=== PATIENT | female | born 1940 | race Caucasian/White ===

== ENCOUNTER 2020-08-13 14:02 | Observation (INO) ==
[2020-08-13 15:47] LABS: Basophils % 0.3 %; Eosinophils # 0.1 K/mcL (0.0-0.6); Eosinophils % 1.6 %; Hematocrit 23.5 % (35.3-44.9); Hemoglobin 6.8 g/dL (11.5-15.4); Immature Granulocytes % 0.6 % (0-4); Lymphocytes # 0.5 K/mcL (0.6-4.6); Mean Corpuscular HGB Conc 28.9 g/dL (31.6-35.5); Mean Corpuscular Hemoglobin 27.6 pg (28.0-33.3); Mean Corpuscular Volume 95.5 fL (83.0-100.0); Mean Platelet Volume 9.8 fL (9.4-12.4); Monocytes # 0.4 K/mcL (0.0-1.3); Monocytes % 11.5 %; Neutrophils # 2.2 K/mcL (1.6-8.9); Red Blood Count 2.46 M/mcL (3.82-4.97); Red Cell Distribution Width 16.5 % (11.5-14.5); White Blood Count 3.1 K/mcL (4.3-11.1)
[2020-08-13 15:48] LABS: Platelet Count 91 K/mcL (140-400)
[2020-08-13 15:56] LABS: Calcium 8.8 mg/dL (8.6-10.3); Potassium 3.9 mEq/L (3.5-5.1)
[2020-08-13 16:20] LABS: Ovalocytes 1+ (Not Present); Platelet Estimate Slight Decrease (Normal)
[2020-08-13 16:21] LABS: Anisocytosis 1+ (Not Present); Hypochromasia Present (Not Present)
[2020-08-13] MEDS ORDERED: Ondansetron 4 MG/2 ML VIAL IVP PRN (16:45)
[2020-08-13] MEDS ORDERED: Naloxone 0.4 MG/ML INJ IVP PRN (16:45)
[2020-08-13] MEDS ORDERED: D5% in Water 1,000 ML IVC PRN (16:53)
[2020-08-13] MEDS ORDERED: Dextrose Gel 15 GM/37.5 ML TUBE PO PRN ×2 (16:53)
[2020-08-13] MEDS ORDERED: *HR* Dextrose 50 % in Water (Vial) 50 ML VIAL IVP PRN (16:53)
[2020-08-13] MEDS ORDERED: 0.9 % Sodium Chloride 250 ML ONE ×2 (17:00→20:22)
[2020-08-13] MEDS: Pantoprazole 40 MG VIAL IVP SCH (18:32)
[2020-08-13] MEDS: carvediloL 6.25 MG TABLET PO SCH (18:34)
[2020-08-13] MEDS: Insulin LISPRO 300 UNITS/3 ML VIAL SQ SCH (18:37)
[2020-08-13 18:56] LABS: Estimated Average Glucose 71 mg/dl
[2020-08-13] MEDS: Budesonide/Formoterol 80/4.5 1 PUFF INH IH SCH (19:38)
[2020-08-13] MEDS ORDERED: Insulin DETEMIR 100 UNIT/ML X5UNITS SQ SCH (21:00)
[2020-08-14] MEDS: Insulin LISPRO 300 UNITS/3 ML VIAL SQ SCH ×3 (00:17→14:35)
[2020-08-14 03:43] LABS: Basophils % 0.3 %; Eosinophils % 1.9 %; Immature Granulocytes % 0.3 % (0-4)
[2020-08-14 03:45] LABS: Eosinophils # 0.1 K/mcL (0.0-0.6); Hematocrit 26.6 % (35.3-44.9); Hemoglobin 7.9 g/dL (11.5-15.4); Immature Platelets 3.3 % (1.1-6.1); Lymphocytes # 0.6 K/mcL (0.6-4.6); Lymphocytes % 14.6 %; Mean Corpuscular HGB Conc 29.7 g/dL (31.6-35.5); Mean Corpuscular Hemoglobin 27.6 pg (28.0-33.3); Mean Platelet Volume 9.7 fL (9.4-12.4); Monocytes # 0.5 K/mcL (0.0-1.3); Monocytes % 13.6 %; Neutrophils # 2.6 K/mcL (1.6-8.9); Nucleated Red Blood Cells 0.5 /100 WBC (0); Red Blood Count 2.86 M/mcL (3.82-4.97); Red Cell Distribution Width 16.7 % (11.5-14.5); Segmented Neutrophils % 69.3 %; White Blood Count 3.8 K/mcL (4.3-11.1)
[2020-08-14 03:46] LABS: Platelet Count 87 K/mcL (140-400)
[2020-08-14 03:58] LABS: Calcium 8.2 mg/dL (8.6-10.3); Magnesium 1.6 mg/dL (1.6-2.6); Phosphorous 3.6 mg/dL (2.7-4.5); Potassium 3.8 mEq/L (3.5-5.1)
[2020-08-14] MEDS: Pantoprazole 40 MG VIAL IVP SCH (06:22)
[2020-08-14] MEDS: Budesonide/Formoterol 80/4.5 1 PUFF INH IH SCH (07:49)
[2020-08-14] MEDS ORDERED: NON-FORMULARY MEDICATION 1 EACH EACH (Esomeprazole Magnesium [Nexium] 40 MG) PO SCH (09:00)
[2020-08-14] MEDS ORDERED: *HR* Amiodarone 200 MG TABLET PO SCH (09:00)
[2020-08-14] MEDS: carvediloL 6.25 MG TABLET PO SCH (09:51)
[2020-08-14] MEDS ORDERED: Tiotropium 18 MCG inhalation IH SCH (10:00)
[2020-08-14 11:56] VITALS: BP 134/52
== END 2020-08-14 14:45 | disposition home or self-care (01) ==
LOC: EMEROOARM 14:02 → 3BNU 14:02 → SUATTDRO 17:09 → 3BNU 17:40
PROVIDERS: ADMIT Pharmacist; ATTEND Internal Medicine

== ENCOUNTER 2020-09-29 16:49 | Observation (INO) ==
[2020-09-29] MEDS ORDERED: Pantoprazole 40 MG VIAL IVP ONE (17:07)
[2020-09-29 17:43] LABS: INR 1.8; Prothrombin Time 20.9 Seconds (9.4-12.1)
[2020-09-29 17:49] LABS: Basophils % 0.3 %
[2020-09-29 17:50] LABS: Eosinophils # 0.1 K/mcL (0.0-0.6); Eosinophils % 1.5 %; Hematocrit 21.7 % (35.3-44.9); Hemoglobin 6.3 g/dL (11.5-15.4); Lymphocytes # 0.6 K/mcL (0.6-4.6); Lymphocytes % 17.3 %; Mean Corpuscular Hemoglobin 26.9 pg (28.0-33.3); Mean Corpuscular Volume 92.7 fL (83.0-100.0); Monocytes # 0.4 K/mcL (0.0-1.3); Monocytes % 11.4 %; Neutrophils # 2.2 K/mcL (1.6-8.9); Platelet Count 106 K/mcL (140-400); Red Blood Count 2.34 M/mcL (3.82-4.97); Red Cell Distribution Width 14.4 % (11.5-14.5); Segmented Neutrophils % 69.5 %; White Blood Count 3.2 K/mcL (4.3-11.1)
[2020-09-29 18:05] LABS: Alanine Aminotransferase 13 Units/L (7-52); Albumin 3.1 g/dL (3.5-5.7); Albumin/Globulin Ratio 0.9 (1.1-2.2); Alkaline Phosphatase 70 Units/L (34-104); Aspartate Amino Transferase 16 Units/L (13-39); BUN/Creatinine Ratio 25 (6-26); Bilirubin,Total 0.6 mg/dL (0.3-1.0); Blood Urea Nitrogen 41 mg/dL (8-23); Calcium 8.1 mg/dL (8.6-10.3); Carbon Dioxide 32 mEq/L (23-29); Chloride 100 mEq/L (98-107); Globulin 3.5 g/dL (2.4-3.5); Glucose 177 mg/dL (70-105); Osmolality,Calculated 300 (280-300); Potassium 4.3 mEq/L (3.5-5.1); Sodium 138 mEq/L (136-145); Total Protein 6.6 g/dL (6.4-8.9); Troponin I < 0.03 ng/mL (< 0.04); eGFR For African Americans 37 (> 60); eGFR For Non-African Americans 31 (> 60)
[2020-09-29 18:11] LABS: Anisocytosis 1+ (Not Present); Hypochromasia Present (Not Present); Platelet Estimate Decreased (Normal)
[2020-09-29] MEDS ORDERED: 0.9 % Sodium Chloride 250 ML ONE (18:58)
[2020-09-29 19:55] LABS: Adenovirus Not Detected (Not Detect); Bordetella Pertussis Not Detected (Not Detect); Chlamydophila pneumoniae Not Detected (Not Detect); Coronavirus 229E Not Detected (Not Detect); Coronavirus HKU1 Not Detected (Not Detect); Coronavirus NL63 Not Detected (Not Detect); Coronavirus OC43 Not Detected (Not Detect); Human Metapneumovirus Not Detected (Not Detect); Human Rhinovirus/Enterovirus Not Detected (Not Detect); Influenza A Subtype 2009 H1 Not Detected (Not Detect); Influenza B Not Detected (Not Detect); Mycoplasma pneumoniae Not Detected (Not Detect); Parainfluenza Virus 1 Not Detected (Not Detect); Parainfluenza Virus 2 Not Detected (Not Detect); Parainfluenza Virus 3 Not Detected (Not Detect); Parainfluenza Virus 4 Not Detected (Not Detect); Respiratory Syncytial Virus Not Detected (Not Detect); SARS-CoV-2 Not Detected (Not Detect)
[2020-09-29] MEDS ORDERED: Naloxone 0.4 MG/ML INJ IVP PRN (20:07)
[2020-09-29] MEDS ORDERED: Acetaminophen 325 MG TABLET PO PRN (20:07)
[2020-09-29] MEDS ORDERED: Ondansetron ODT 4 MG TAB.RAPDIS SL PRN (20:07)
[2020-09-29] MEDS ORDERED: D5% in Water 1,000 ML IVC PRN (22:12)
[2020-09-29] MEDS ORDERED: Dextrose Gel 15 GM/37.5 ML TUBE PO PRN ×2 (22:12)
[2020-09-29] MEDS ORDERED: *HR* Dextrose 50 % in Water (Vial) 50 ML VIAL IVP PRN (22:12)
[2020-09-29 23:11] LABS: Hemoglobin 7.2 g/dL (11.5-15.4); Red Cell Distribution Width 14.1 % (11.5-14.5)
[2020-09-29 23:13] LABS: Basophils % 0.3 %; Eosinophils # 0.1 K/mcL (0.0-0.6); Eosinophils % 1.7 %; Hematocrit 24.5 % (35.3-44.9); Lymphocytes # 0.7 K/mcL (0.6-4.6); Lymphocytes % 20.6 %; Mean Corpuscular HGB Conc 29.4 g/dL (31.6-35.5); Mean Corpuscular Volume 91.8 fL (83.0-100.0); Mean Platelet Volume 10.8 fL (9.4-12.4); Monocytes # 0.5 K/mcL (0.0-1.3); Monocytes % 12.5 %; Neutrophils # 2.3 K/mcL (1.6-8.9); Platelet Count 107 K/mcL (140-400); Red Blood Count 2.67 M/mcL (3.82-4.97); Segmented Neutrophils % 64.9 %; White Blood Count 3.6 K/mcL (4.3-11.1)
[2020-09-29 23:30] LABS: Anisocytosis 1+ (Not Present); Hypochromasia Present (Not Present); Platelet Estimate Decreased (Normal)
[2020-09-29] MEDS: Insulin LISPRO 300 UNITS/3 ML VIAL SQ SCH (23:46)
[2020-09-30] MEDS ORDERED: 0.9 % Sodium Chloride 250 ML ONE (00:21)
[2020-09-30 04:40] LABS: Basophils % 0.2 %; Eosinophils # 0.1 K/mcL (0.0-0.6); Hematocrit 26.7 % (35.3-44.9); Immature Granulocytes % 0.2 % (0-4); Lymphocytes # 0.8 K/mcL (0.6-4.6); Lymphocytes % 18.3 %; Mean Corpuscular Hemoglobin 27.3 pg (28.0-33.3); Mean Corpuscular Volume 91.1 fL (83.0-100.0); Mean Platelet Volume 10.4 fL (9.4-12.4); Monocytes # 0.5 K/mcL (0.0-1.3); Monocytes % 11.2 %; Platelet Count 106 K/mcL (140-400); Red Blood Count 2.93 M/mcL (3.82-4.97); Red Cell Distribution Width 14.2 % (11.5-14.5); Segmented Neutrophils % 68.1 %; White Blood Count 4.5 K/mcL (4.3-11.1)
[2020-09-30 04:50] LABS: Calcium 8.2 mg/dL (8.6-10.3); Magnesium 1.8 mg/dL (1.6-2.6); Phosphorous 3.7 mg/dL (2.7-4.5)
[2020-09-30 06:00] LABS: Bilirubin,Urine Negative (Negative); Blood,Urine Negative (Negative); Clarity,Urine Clear (Clear); Color,Urine Light-Yellow (Yellow); Glucose,Urine (UA) Normal (Normal); Ketones,Urine Negative (Negative); Leukocyte Esterase,Urine Moderate (Negative); Nitrite,Urine Negative (Negative); PH,Urine 6.5 pH Units (5.0-8.0); Protein,Urine Negative (Neg-Trace); Specific Gravity,Urine 1.018 (1.010-1.025); Squamous Epithelial Cell,Urine Few per hpf (None-Few); WBC,Urine 0-3 per hpf (0-3)
[2020-09-30 06:45] LABS: Basophils % 0.2 %; Red Cell Distribution Width 14.4 % (11.5-14.5)
[2020-09-30 06:47] LABS: Eosinophils # 0.1 K/mcL (0.0-0.6); Hematocrit 27.3 % (35.3-44.9); Hemoglobin 8.1 g/dL (11.5-15.4); Lymphocytes # 0.6 K/mcL (0.6-4.6); Lymphocytes % 12.2 %; Mean Corpuscular HGB Conc 29.7 g/dL (31.6-35.5); Mean Corpuscular Hemoglobin 26.9 pg (28.0-33.3); Mean Corpuscular Volume 90.7 fL (83.0-100.0); Mean Platelet Volume 10.3 fL (9.4-12.4); Monocytes # 0.6 K/mcL (0.0-1.3); Monocytes % 12.4 %; Neutrophils # 3.3 K/mcL (1.6-8.9); Red Blood Count 3.01 M/mcL (3.82-4.97); Segmented Neutrophils % 73.2 %; White Blood Count 4.5 K/mcL (4.3-11.1)
[2020-09-30 06:58] LABS: Platelet Count 98 K/mcL (140-400)
[2020-09-30] MEDS ORDERED: Ipratropium/Albuterol Neb 3 ML IH SCH (07:00)
[2020-09-30] MEDS: Insulin LISPRO 300 UNITS/3 ML VIAL SQ SCH (08:49)
[2020-09-30 11:27] VITALS: BP 162/64
== END 2020-09-30 12:50 | disposition home or self-care (01) ==
LOC: EMEROOARM 16:49 → 3NENU 16:49 → SUATTDRO 20:36 → 3NENU 21:23
PROVIDERS: ADMIT Family Medicine; ATTEND Internal Medicine

== ENCOUNTER 2020-10-13 18:56 | Observation (INO) ==
[2020-10-13 20:35] LABS: Basophils % 0.3 %; Immature Granulocytes % 0.3 % (0-4)
[2020-10-13 20:37] LABS: Eosinophils # 0.1 K/mcL (0.0-0.6); Eosinophils % 1.4 %; Hematocrit 20.6 % (35.3-44.9); Lymphocytes # 0.6 K/mcL (0.6-4.6); Lymphocytes % 15.6 %; Mean Corpuscular HGB Conc 28.6 g/dL (31.6-35.5); Mean Corpuscular Hemoglobin 27.1 pg (28.0-33.3); Mean Corpuscular Volume 94.5 fL (83.0-100.0); Mean Platelet Volume 10.4 fL (9.4-12.4); Monocytes # 0.4 K/mcL (0.0-1.3); Monocytes % 12.2 %; Neutrophils # 2.5 K/mcL (1.6-8.9); Platelet Count 110 K/mcL (140-400); Red Blood Count 2.18 M/mcL (3.82-4.97); Red Cell Distribution Width 15.5 % (11.5-14.5); Segmented Neutrophils % 70.2 %; White Blood Count 3.5 K/mcL (4.3-11.1)
[2020-10-13 20:43] LABS: Hemoglobin 5.9 g/dL (11.5-15.4)
[2020-10-13 21:07] LABS: Hypochromasia Present (Not Present); Microcytosis Present (Not Present); Platelet Estimate Decreased (Normal)
[2020-10-13] MEDS ORDERED: Naloxone 0.4 MG/ML INJ IVP PRN (22:06)
[2020-10-13] MEDS ORDERED: Ondansetron 4 MG/2 ML VIAL IVP PRN (22:11)
[2020-10-13] MEDS ORDERED: Acetaminophen 325 MG TABLET PO PRN (22:11)
[2020-10-13] MEDS ORDERED: Furosemide 40 MG TABLET PO PRN (22:37)
[2020-10-13] MEDS ORDERED: *HR* Dextrose 50 % in Water (Vial) 50 ML VIAL IVP PRN (22:39)
[2020-10-13] MEDS ORDERED: D5% in Water 1,000 ML IVC PRN (22:39)
[2020-10-13] MEDS ORDERED: Dextrose Gel 15 GM/37.5 ML TUBE PO PRN ×2 (22:39)
[2020-10-13] MEDS ORDERED: Insulin DETEMIR 100 UNIT/ML X5UNITS SQ SCH (22:45)
[2020-10-13] MEDS: carvediloL 6.25 MG TABLET PO SCH (23:33)
[2020-10-14] MEDS: Budesonide/Formoterol 80/4.5 1 PUFF INH IH SCH ×2 (01:07→07:19)
[2020-10-14] MEDS ORDERED: Ipratropium/Albuterol Neb 3 ML IH PRN (01:07)
[2020-10-14] MEDS: Ipratropium/Albuterol Neb 3 ML IH SCH ×3 (04:33→11:00)
[2020-10-14 05:42] LABS: Basophils % 0.2 %; Hematocrit 25.1 % (35.3-44.9); Mean Corpuscular HGB Conc 29.9 g/dL (31.6-35.5); Red Cell Distribution Width 15.2 % (11.5-14.5)
[2020-10-14 05:44] LABS: Eosinophils # 0.1 K/mcL (0.0-0.6); Eosinophils % 1.4 %; Hemoglobin 7.5 g/dL (11.5-15.4); Immature Granulocytes % 0.2 % (0-4); Lymphocytes # 0.6 K/mcL (0.6-4.6); Lymphocytes % 14.5 %; Mean Corpuscular Hemoglobin 27.8 pg (28.0-33.3); Mean Platelet Volume 9.8 fL (9.4-12.4); Monocytes # 0.6 K/mcL (0.0-1.3); Monocytes % 14.1 %; Segmented Neutrophils % 69.6 %; White Blood Count 4.3 K/mcL (4.3-11.1)
[2020-10-14 05:45] LABS: Platelet Count 96 K/mcL (140-400)
[2020-10-14 06:02] LABS: Calcium 8.2 mg/dL (8.6-10.3); Potassium 4.2 mEq/L (3.5-5.1)
[2020-10-14] MEDS ORDERED: Insulin LISPRO 300 UNITS/3 ML VIAL SQ SCH ×2 (07:30→21:00)
[2020-10-14 07:39] VITALS: BP 131/48
[2020-10-14] MEDS ORDERED: carvediloL 6.25 MG TABLET PO SCH (08:00)
[2020-10-14] MEDS: carvediloL 6.25 MG TABLET PO SCH (08:16)
[2020-10-14] MEDS ORDERED: *HR* Amiodarone 200 MG TABLET PO SCH (09:00)
[2020-10-14] MEDS ORDERED: Cholecalciferol (D-3) 1,000 UNIT (25MCG) TABLET PO SCH (09:00)
[2020-10-14] MEDS ORDERED: Budesonide/Formoterol 80/4.5 1 PUFF INH IH SCH (10:00)
[2020-10-14] MEDS ORDERED: Tiotropium 18 MCG inhalation IH SCH (21:00)
== END 2020-10-14 13:35 | disposition home or self-care (01) ==
LOC: EMEROOARM 18:56 → 3BNU 18:56 → SUATTDRO 21:12 → 3BNU 21:31
PROVIDERS: ADMIT Internal Medicine; ATTEND Internal Medicine

== ENCOUNTER 2020-10-27 17:50 | Observation (INO) ==
[2020-10-27 19:19] LABS: Basophils % 0.3 %
[2020-10-27 19:21] LABS: Eosinophils # 0.1 K/mcL (0.0-0.6); Eosinophils % 1.6 %; Hematocrit 21.9 % (35.3-44.9); Hemoglobin 6.4 g/dL (11.5-15.4); Immature Granulocytes % 1.3 % (0-4); Immature Platelets 3.1 % (1.1-6.1); Lymphocytes # 0.5 K/mcL (0.6-4.6); Lymphocytes % 16.1 %; Mean Corpuscular HGB Conc 29.2 g/dL (31.6-35.5); Mean Corpuscular Hemoglobin 26.8 pg (28.0-33.3); Mean Corpuscular Volume 91.6 fL (83.0-100.0); Mean Platelet Volume 10.5 fL (9.4-12.4); Monocytes # 0.3 K/mcL (0.0-1.3); Monocytes % 10.1 %; Platelet Count 104 K/mcL (140-400); Red Blood Count 2.39 M/mcL (3.82-4.97); Red Cell Distribution Width 14.7 % (11.5-14.5); Segmented Neutrophils % 70.6 %; White Blood Count 3.2 K/mcL (4.3-11.1)
[2020-10-27 19:45] LABS: Troponin I < 0.03 ng/mL (< 0.04)
[2020-10-27 19:50] LABS: BUN/Creatinine Ratio 30 (6-26); Blood Urea Nitrogen 38 mg/dL (8-23); Calcium 7.8 mg/dL (8.6-10.3); Carbon Dioxide 29 mEq/L (23-29); Chloride 106 mEq/L (98-107); Glucose 72 mg/dL (70-105); Osmolality,Calculated 298 (280-300); Potassium 4.4 mEq/L (3.5-5.1); Sodium 140 mEq/L (136-145); eGFR For African Americans 49 (> 60); eGFR For Non-African Americans 41 (> 60)
[2020-10-27 19:53] LABS: Neutrophils # 2.3 K/mcL (1.6-8.9)
[2020-10-27 19:55] LABS: Hypochromasia Present (Not Present); Platelet Estimate Slight Decrease (Normal)
[2020-10-27] MEDS ORDERED: Naloxone 0.4 MG/ML INJ IVP PRN (20:28)
[2020-10-27] MEDS ORDERED: Ondansetron 4 MG/2 ML VIAL IVP PRN (20:28)
[2020-10-27] MEDS ORDERED: Acetaminophen 325 MG TABLET PO PRN (20:28)
[2020-10-27] MEDS ORDERED: Furosemide 40 MG TABLET PO PRN (20:36)
[2020-10-27] MEDS ORDERED: D5% in Water 1,000 ML IVC PRN (20:37)
[2020-10-27] MEDS ORDERED: Dextrose Gel 15 GM/37.5 ML TUBE PO PRN ×2 (20:37)
[2020-10-27] MEDS ORDERED: *HR* Dextrose 50 % in Water (Vial) 50 ML VIAL IVP PRN (20:37)
[2020-10-27] MEDS ORDERED: Insulin DETEMIR 100 UNIT/ML X5UNITS SQ SCH (21:00)
[2020-10-27] MEDS ORDERED: Insulin LISPRO 300 UNITS/3 ML VIAL SQ SCH (21:00)
[2020-10-27] MEDS: Budesonide/Formoterol 160/4.5 1 PUFF INH IH SCH (21:43)
[2020-10-27] MEDS ORDERED: 0.9 % Sodium Chloride 250 ML ONE (22:16)
[2020-10-27] MEDS: carvediloL 6.25 MG TABLET PO SCH (23:09)
[2020-10-27] MEDS ORDERED: Ipratropium/Albuterol Neb 3 ML IH PRN (23:14)
[2020-10-27] MEDS ORDERED: Furosemide 40 MG/4 ML VIAL IVP ONE (23:15)
[2020-10-27] MEDS: Ipratropium/Albuterol Neb 3 ML IH SCH (23:30)
[2020-10-28] MEDS: Ipratropium/Albuterol Neb 3 ML IH SCH ×3 (03:34→11:51)
[2020-10-28 04:02] LABS: Basophils % 0.3 %; Eosinophils # 0.1 K/mcL (0.0-0.6); Eosinophils % 1.5 %; Hematocrit 24.2 % (35.3-44.9); Hemoglobin 7.1 g/dL (11.5-15.4); Immature Granulocytes % 0.3 % (0-4); Lymphocytes # 0.6 K/mcL (0.6-4.6); Lymphocytes % 19.8 %; Mean Corpuscular HGB Conc 29.3 g/dL (31.6-35.5); Mean Platelet Volume 10.1 fL (9.4-12.4); Monocytes # 0.4 K/mcL (0.0-1.3); Monocytes % 13.6 %; Neutrophils # 2.1 K/mcL (1.6-8.9); Red Blood Count 2.63 M/mcL (3.82-4.97); Red Cell Distribution Width 15.3 % (11.5-14.5); Segmented Neutrophils % 64.5 %; White Blood Count 3.2 K/mcL (4.3-11.1)
[2020-10-28 04:03] LABS: Platelet Count 90 K/mcL (140-400)
[2020-10-28 04:22] LABS: Calcium 8.4 mg/dL (8.6-10.3); Potassium 4.5 mEq/L (3.5-5.1)
[2020-10-28] MEDS ORDERED: 0.9 % Sodium Chloride 250 ML IVC SCH (04:45)
[2020-10-28] MEDS ORDERED: Insulin LISPRO 300 UNITS/3 ML VIAL SQ SCH (07:30)
[2020-10-28] MEDS: carvediloL 6.25 MG TABLET PO SCH (08:08)
[2020-10-28] MEDS ORDERED: Cholecalciferol (D-3) 1,000 UNIT (25MCG) TABLET PO SCH (09:00)
[2020-10-28] MEDS ORDERED: *HR* Amiodarone 200 MG TABLET PO SCH (09:00)
[2020-10-28] MEDS ORDERED: Tiotropium 18 MCG inhalation IH SCH (10:00)
[2020-10-28 10:17] VITALS: BP 132/54
[2020-10-28 11:46] LABS: Hematocrit 26.1 % (35.3-44.9); Hemoglobin 7.6 g/dL (11.5-15.4)
[2020-10-28] MEDS: Budesonide/Formoterol 160/4.5 1 PUFF INH IH SCH (11:54)
== END 2020-10-28 15:11 | disposition home or self-care (01) ==
LOC: 3ANU 17:50 → EMEROOARM 17:50 → SUATTDRO 20:49 → 3ANU 21:50
PROVIDERS: ADMIT Family Medicine; ATTEND Internal Medicine

== ENCOUNTER 2020-12-09 17:30 | Inpatient (IN) ==
[2020-12-09 18:43] LABS: Eosinophils # 0.1 K/mcL (0.0-0.6); Immature Granulocytes % 0.3 % (0-4); Red Cell Distribution Width 14.7 % (11.5-14.5); White Blood Count 3.5 K/mcL (4.3-11.1)
[2020-12-09 18:45] LABS: Basophils % 0.3 %; Hematocrit 23.1 % (35.3-44.9); Hemoglobin 6.5 g/dL (11.5-15.4); Lymphocytes # 0.4 K/mcL (0.6-4.6); Lymphocytes % 12.1 %; Mean Corpuscular HGB Conc 28.1 g/dL (31.6-35.5); Mean Corpuscular Hemoglobin 25.9 pg (28.0-33.3); Monocytes # 0.4 K/mcL (0.0-1.3); Monocytes % 11.3 %; Neutrophils # 2.6 K/mcL (1.6-8.9); Red Blood Count 2.51 M/mcL (3.82-4.97)
[2020-12-09 18:47] LABS: Platelet Count 92 K/mcL (140-400)
[2020-12-09 19:00] LABS: Hypochromasia Present (Not Present)
[2020-12-09 19:02] LABS: Calcium 8.1 mg/dL (8.6-10.3); Potassium 4.6 mEq/L (3.5-5.1)
[2020-12-09] MEDS ORDERED: Naloxone 0.4 MG/ML INJ IVP PRN (21:40)
[2020-12-09] MEDS ORDERED: Ondansetron 4 MG/2 ML VIAL IVP PRN (21:40)
[2020-12-09] MEDS ORDERED: Acetaminophen 325 MG TABLET PO PRN (21:40)
[2020-12-09] MEDS ORDERED: 0.9 % Sodium Chloride 250 ML ONE (22:26)
[2020-12-10 03:32] LABS: Hematocrit 27.3 % (35.3-44.9); Hemoglobin 7.9 g/dL (11.5-15.4); Mean Corpuscular HGB Conc 28.9 g/dL (31.6-35.5); Mean Corpuscular Hemoglobin 26.3 pg (28.0-33.3); Mean Platelet Volume 10.3 fL (9.4-12.4); Red Cell Distribution Width 14.8 % (11.5-14.5); White Blood Count 4.4 K/mcL (4.3-11.1)
[2020-12-10 03:33] LABS: Platelet Count 95 K/mcL (140-400)
[2020-12-10] MEDS: Albuterol 2.5 MG/3 ML NEBULIZER IH SCH ×6 (04:25→20:19)
[2020-12-10 04:48] LABS: Calcium 8.3 mg/dL (8.6-10.3); Phosphorous 3.9 mg/dL (2.7-4.5); Potassium 4.4 mEq/L (3.5-5.1)
[2020-12-10] MEDS ORDERED: Furosemide 40 MG TABLET PO PRN (06:39)
[2020-12-10] MEDS: Tiotropium 10 INH DOSE IH SCH (07:37)
[2020-12-10] MEDS: Budesonide/Formoterol 80/4.5 1 PUFF INH IH SCH ×2 (07:39→22:26)
[2020-12-10] MEDS: carvediloL 6.25 MG TABLET PO SCH ×2 (08:56→17:26)
[2020-12-10] MEDS: Cholecalciferol (D-3) 1,000 UNIT (25MCG) TABLET PO SCH (08:56)
[2020-12-10] MEDS: *HR* Amiodarone 200 MG TABLET PO SCH (08:57)
[2020-12-10] MEDS ORDERED: Furosemide 40 MG in 0.9 % Sodium Chloride 50 ML IV ONE ×2 (10:27→10:55)
[2020-12-10] MEDS ORDERED: Furosemide 40 MG/4 ML VIAL IVP ONE (10:57)
[2020-12-10] MEDS ORDERED: *HR* Dextrose 50 % in Water (Vial) 50 ML VIAL IVP PRN (12:02)
[2020-12-10] MEDS ORDERED: Dextrose Gel 15 GM/37.5 ML TUBE PO PRN ×2 (12:02)
[2020-12-10] MEDS ORDERED: D5% in Water 1,000 ML IVC PRN (12:02)
[2020-12-10] MEDS: Insulin LISPRO 300 UNITS/3 ML VIAL SUBQ SCH ×2 (13:11→17:26)
[2020-12-10] MEDS: Ipratropium/Albuterol Neb 3 ML IH SCH ×3 (15:07→22:26)
[2020-12-10] MEDS ORDERED: Albuterol 2.5 MG/3 ML NEBULIZER IH PRN (20:15)
[2020-12-10] MEDS ORDERED: Insulin LISPRO 300 UNITS/3 ML VIAL SUBQ SCH (21:00)
[2020-12-10] MEDS ORDERED: Apixaban 2.5 MG TABLET PO SCH (21:00)
[2020-12-10] MEDS ORDERED: Insulin DETEMIR 100 UNIT/ML X5UNITS SUBQ SCH ×2 (21:00→22:30)
[2020-12-11] MEDS: Ipratropium/Albuterol Neb 3 ML IH SCH ×3 (04:04→16:12)
[2020-12-11 05:52] LABS: Hemoglobin 7.2 g/dL (11.5-15.4); Immature Granulocytes % 0.3 % (0-4); Mean Corpuscular HGB Conc 28.8 g/dL (31.6-35.5)
[2020-12-11 05:53] LABS: Basophils % 0.3 %; Eosinophils # 0.1 K/mcL (0.0-0.6); Eosinophils % 2.8 %; Immature Platelets 3.7 % (1.1-6.1); Lymphocytes # 0.7 K/mcL (0.6-4.6); Mean Corpuscular Hemoglobin 26.4 pg (28.0-33.3); Mean Corpuscular Volume 91.6 fL (83.0-100.0); Mean Platelet Volume 10.6 fL (9.4-12.4); Monocytes # 0.5 K/mcL (0.0-1.3); Monocytes % 14.7 %; Neutrophils # 2.2 K/mcL (1.6-8.9); Red Blood Count 2.73 M/mcL (3.82-4.97); Red Cell Distribution Width 14.9 % (11.5-14.5); Segmented Neutrophils % 62.9 %; White Blood Count 3.5 K/mcL (4.3-11.1)
[2020-12-11 06:36] LABS: Platelet Count 89 K/mcL (140-400)
[2020-12-11 08:29] VITALS: BP 145/69
[2020-12-11] MEDS: Insulin LISPRO 300 UNITS/3 ML VIAL SUBQ SCH ×3 (08:57→17:16)
[2020-12-11] MEDS ORDERED: Multivit/Ca/Min/Fe/FA 1 TAB TABLET PO SCH (09:00)
[2020-12-11] MEDS ORDERED: Cholecalciferol (D-3) 1,000 UNIT (25MCG) TABLET PO SCH (09:00)
[2020-12-11] MEDS: carvediloL 6.25 MG TABLET PO SCH ×2 (09:09→17:16)
[2020-12-11] MEDS: Apixaban 2.5 MG TABLET PO SCH ×2 (09:09→09:38)
[2020-12-11] MEDS: *HR* Amiodarone 200 MG TABLET PO SCH (09:09)
[2020-12-11] MEDS: Cholecalciferol (D-3) 1,000 UNIT (25MCG) TABLET PO SCH (09:57)
[2020-12-11] MEDS: Budesonide/Formoterol 80/4.5 1 PUFF INH IH SCH (10:27)
[2020-12-11] MEDS: Tiotropium 10 INH DOSE IH SCH (10:28)
== END 2020-12-11 18:07 | disposition home health service (06) | DRG 809 ==
LOC: EMEROOARM 17:30 → 3ANU 17:30 → SUATTDRO 20:26 → 3ANU 21:17
PROVIDERS: ADMIT Family Medicine; ATTEND Internal Medicine

== ENCOUNTER 2020-12-30 12:28 | Inpatient (IN) ==
[2020-12-30] MEDS ORDERED: Furosemide 40 MG/4 ML VIAL IVP ONE (12:41)
[2020-12-30 13:32] LABS: Hematocrit 23.2 % (35.3-44.9); Immature Granulocytes % 0.3 % (0-4); Mean Corpuscular Volume 94.3 fL (83.0-100.0); Red Blood Count 2.46 M/mcL (3.82-4.97); Red Cell Distribution Width 15.9 % (11.5-14.5)
[2020-12-30 13:34] LABS: Eosinophils # 0.1 K/mcL (0.0-0.6); Eosinophils % 2.7 %; Hemoglobin 6.5 g/dL (11.5-15.4); Immature Platelets 2.9 % (1.1-6.1); Lymphocytes # 0.5 K/mcL (0.6-4.6); Lymphocytes % 13.7 %; Mean Corpuscular Hemoglobin 26.4 pg (28.0-33.3); Mean Platelet Volume 10.6 fL (9.4-12.4); Monocytes # 0.4 K/mcL (0.0-1.3); Monocytes % 9.4 %; Segmented Neutrophils % 73.9 %; White Blood Count 3.7 K/mcL (4.3-11.1)
[2020-12-30 13:37] LABS: Neutrophils # 2.7 K/mcL (1.6-8.9); Platelet Count 92 K/mcL (140-400)
[2020-12-30 13:49] LABS: BUN/Creatinine Ratio 23 (6-26); Blood Urea Nitrogen 40 mg/dL (8-23); Calcium 8.4 mg/dL (8.6-10.3); Carbon Dioxide 34 mEq/L (23-29); Chloride 103 mEq/L (98-107); Glucose 127 mg/dL (70-105); Osmolality,Calculated 301 (280-300); Potassium 4.3 mEq/L (3.5-5.1); Sodium 140 mEq/L (136-145); Troponin I < 0.03 ng/mL (< 0.04); eGFR For African Americans 35 (> 60); eGFR For Non-African Americans 29 (> 60)
[2020-12-30 14:09] LABS: Anisocytosis 1+ (Not Present); Hypochromasia Present (Not Present)
[2020-12-30] MEDS ORDERED: Ondansetron 4 MG/2 ML VIAL IVP PRN (14:25)
[2020-12-30] MEDS ORDERED: Acetaminophen 325 MG TABLET PO PRN (14:25)
[2020-12-30 14:49] LABS: % Iron Saturation 30 % (15-50); Iron 104 mcg/dL (50-170); Transferrin 247 mg/dL (203-362)
[2020-12-30 15:07] LABS: Ferritin 36 ng/mL (10-120)
[2020-12-30] MEDS ORDERED: 0.9 % Sodium Chloride 250 ML ONE (15:49)
[2020-12-30] MEDS ORDERED: Perflutren Lipid Microsphere 1.3 ML in 0.9 % Sodium Chloride 8.7 ML IVP PRN (17:07)
[2020-12-30] MEDS ORDERED: Iron Sucrose Complex 250 MG in 0.9 % Sodium Chloride 250 ML IVPB SCH (17:15)
[2020-12-30] MEDS ORDERED: Dextrose Gel 15 GM/37.5 ML TUBE PO PRN ×2 (17:28)
[2020-12-30] MEDS ORDERED: D5% in Water 1,000 ML IVC PRN (17:28)
[2020-12-30] MEDS ORDERED: *HR* Dextrose 50 % in Water (Vial) 50 ML VIAL IVP PRN (17:28)
[2020-12-30] MEDS: Iron Sucrose Complex 250 MG in 0.9 % Sodium Chloride 250 ML IVPB SCH (20:05)
[2020-12-30] MEDS: carvediloL 6.25 MG TABLET PO SCH (20:06)
[2020-12-30] MEDS: Apixaban 2.5 MG TABLET PO SCH (20:06)
[2020-12-30] MEDS: Furosemide 40 MG/4 ML VIAL IVP SCH (20:06)
[2020-12-30] MEDS: Insulin DETEMIR 100 UNIT/ML X5UNITS SUBQ SCH (20:09)
[2020-12-30] MEDS: Insulin LISPRO 300 UNITS/3 ML VIAL SUBQ SCH (20:16)
[2020-12-30] MEDS: Ipratropium/Albuterol Neb 3 ML IH SCH (22:37)
[2020-12-31] MEDS: Ipratropium/Albuterol Neb 3 ML IH SCH ×4 (03:51→22:13)
[2020-12-31 04:33] LABS: Hemoglobin 6.9 g/dL (11.5-15.4); Mean Platelet Volume 10.2 fL (9.4-12.4)
[2020-12-31 04:34] LABS: Hematocrit 23.7 % (35.3-44.9); Immature Platelets 3.3 % (1.1-6.1); Mean Corpuscular HGB Conc 29.1 g/dL (31.6-35.5); Mean Corpuscular Volume 92.6 fL (83.0-100.0); Red Blood Count 2.56 M/mcL (3.82-4.97); Red Cell Distribution Width 15.8 % (11.5-14.5); White Blood Count 3.6 K/mcL (4.3-11.1)
[2020-12-31 04:51] LABS: Calcium 8.2 mg/dL (8.6-10.3); Magnesium 1.7 mg/dL (1.6-2.6); Potassium 4.2 mEq/L (3.5-5.1)
[2020-12-31] MEDS: Insulin LISPRO 300 UNITS/3 ML VIAL SUBQ SCH ×4 (09:15→22:28)
[2020-12-31] MEDS: Apixaban 2.5 MG TABLET PO SCH ×2 (09:17→22:39)
[2020-12-31] MEDS: Furosemide 40 MG/4 ML VIAL IVP SCH ×2 (09:22→22:39)
[2020-12-31] MEDS: carvediloL 6.25 MG TABLET PO SCH ×2 (09:22→22:39)
[2020-12-31] MEDS: *HR* Amiodarone 200 MG TABLET PO SCH (09:35)
[2020-12-31] MEDS ORDERED: Tiotropium 10 INH DOSE IH SCH (10:00)
[2020-12-31] MEDS: Budesonide/Formoterol 80/4.5 1 PUFF INH IH SCH ×2 (10:56→22:13)
[2020-12-31 17:50] LABS: Hematocrit 23.4 % (35.3-44.9); Hemoglobin 6.9 g/dL (11.5-15.4)
[2020-12-31] MEDS: Iron Sucrose Complex 250 MG in 0.9 % Sodium Chloride 250 ML IVPB SCH (18:12)
[2020-12-31] MEDS ORDERED: 0.9 % Sodium Chloride 250 ML IVC SCH (18:15)
[2020-12-31] MEDS: Insulin DETEMIR 100 UNIT/ML X5UNITS SUBQ SCH (22:41)
[2021-01-01 04:08] LABS: Mean Corpuscular HGB Conc 29.7 g/dL (31.6-35.5); Mean Corpuscular Hemoglobin 27.9 pg (28.0-33.3)
[2021-01-01 04:10] LABS: Hematocrit 24.9 % (35.3-44.9); Hemoglobin 7.4 g/dL (11.5-15.4); Immature Platelets 3.2 % (1.1-6.1); Mean Platelet Volume 10.1 fL (9.4-12.4); Red Blood Count 2.65 M/mcL (3.82-4.97); Red Cell Distribution Width 15.2 % (11.5-14.5); White Blood Count 3.8 K/mcL (4.3-11.1)
[2021-01-01] MEDS: Ipratropium/Albuterol Neb 3 ML IH SCH ×4 (04:17→22:52)
[2021-01-01 04:18] LABS: Potassium 4.1 mEq/L (3.5-5.1)
[2021-01-01] MEDS: Insulin LISPRO 300 UNITS/3 ML VIAL SUBQ SCH ×4 (07:39→20:29)
[2021-01-01] MEDS: carvediloL 6.25 MG TABLET PO SCH ×2 (07:50→20:27)
[2021-01-01] MEDS: *HR* Amiodarone 200 MG TABLET PO SCH (07:51)
[2021-01-01] MEDS: Apixaban 2.5 MG TABLET PO SCH ×2 (07:51→20:27)
[2021-01-01] MEDS: Furosemide 40 MG/4 ML VIAL IVP SCH (07:53)
[2021-01-01 08:50] LABS: Albumin 2.9 g/dL (3.5-5.7); Bilirubin,Direct 0.2 mg/dL (0.0-0.2); Bilirubin,Total 1.2 mg/dL (0.3-1.0); Globulin 2.9 g/dL (2.4-3.5); Total Protein 5.8 g/dL (6.4-8.9)
[2021-01-01] MEDS ORDERED: Cyanocobalamin (B-12) 1,000 MCG/ML VIAL IM ONE (09:35)
[2021-01-01] MEDS ORDERED: MethylPREDNISolone 40 MG/ML VIAL IVP ONE (10:52)
[2021-01-01 10:58] LABS: Hematocrit 24.6 % (35.3-44.9); Hemoglobin 7.3 g/dL (11.5-15.4)
[2021-01-01 11:43] LABS: Hepatitis B Surface Antigen Nonreactive (Nonreactive)
[2021-01-01] MEDS: Budesonide/Formoterol 80/4.5 1 PUFF INH IH SCH ×2 (11:52→22:51)
[2021-01-01 12:11] LABS: Hepatitis A Antibody IgM Nonreactive (Nonreactive)
[2021-01-01 12:12] LABS: Hepatitis B Core IgM Nonreactive (Nonreactive); Hepatitis C Virus Antibody Nonreactive (Nonreactive)
[2021-01-01] MEDS: Iron Sucrose Complex 250 MG in 0.9 % Sodium Chloride 250 ML IVPB SCH (17:25)
[2021-01-01] MEDS: Insulin DETEMIR 100 UNIT/ML X5UNITS SUBQ SCH (20:28)
[2021-01-02] MEDS: Ipratropium/Albuterol Neb 3 ML IH SCH ×4 (04:58→23:47)
[2021-01-02 07:01] LABS: Hemoglobin 7.2 g/dL (11.5-15.4)
[2021-01-02 07:03] LABS: Hematocrit 24.7 % (35.3-44.9); Immature Platelets 4.8 % (1.1-6.1); Mean Corpuscular HGB Conc 29.1 g/dL (31.6-35.5); Mean Corpuscular Hemoglobin 27.3 pg (28.0-33.3); Mean Corpuscular Volume 93.6 fL (83.0-100.0); Mean Platelet Volume 11.1 fL (9.4-12.4); Red Blood Count 2.64 M/mcL (3.82-4.97); Red Cell Distribution Width 15.1 % (11.5-14.5); White Blood Count 3.9 K/mcL (4.3-11.1)
[2021-01-02 07:48] LABS: Calcium 8.2 mg/dL (8.6-10.3); Potassium 4.5 mEq/L (3.5-5.1)
[2021-01-02] MEDS: MethylPREDNISolone 40 MG/ML VIAL IVP SCH (07:55)
[2021-01-02] MEDS: Insulin LISPRO 300 UNITS/3 ML VIAL SUBQ SCH ×4 (07:55→20:12)
[2021-01-02] MEDS: *HR* Amiodarone 200 MG TABLET PO SCH (07:56)
[2021-01-02] MEDS: carvediloL 6.25 MG TABLET PO SCH ×2 (07:56→20:12)
[2021-01-02] MEDS: Apixaban 2.5 MG TABLET PO SCH ×2 (07:56→20:12)
[2021-01-02] MEDS ORDERED: Furosemide 40 MG/4 ML VIAL IVP SCH (09:00)
[2021-01-02] MEDS: Budesonide/Formoterol 80/4.5 1 PUFF INH IH SCH ×2 (09:57→23:47)
[2021-01-02] MEDS: Iron Sucrose Complex 250 MG in 0.9 % Sodium Chloride 250 ML IVPB SCH (17:43)
[2021-01-02] MEDS: Furosemide 40 MG/4 ML VIAL IVP SCH (20:11)
[2021-01-02] MEDS: Insulin DETEMIR 100 UNIT/ML X5UNITS SUBQ SCH (20:12)
[2021-01-03 02:32] LABS: Hemoglobin 7.4 g/dL (11.5-15.4); Mean Corpuscular Volume 92.9 fL (83.0-100.0); Red Cell Distribution Width 15.2 % (11.5-14.5)
[2021-01-03 02:34] LABS: Hematocrit 24.9 % (35.3-44.9); Immature Platelets 3.8 % (1.1-6.1); Mean Corpuscular HGB Conc 29.7 g/dL (31.6-35.5); Mean Corpuscular Hemoglobin 27.6 pg (28.0-33.3); Mean Platelet Volume 10.5 fL (9.4-12.4); Red Blood Count 2.68 M/mcL (3.82-4.97); White Blood Count 5.1 K/mcL (4.3-11.1)
[2021-01-03 02:54] LABS: Calcium 8.3 mg/dL (8.6-10.3); Potassium 4.5 mEq/L (3.5-5.1)
[2021-01-03] MEDS: Ipratropium/Albuterol Neb 3 ML IH SCH ×4 (04:22→22:04)
[2021-01-03] MEDS: Insulin LISPRO 300 UNITS/3 ML VIAL SUBQ SCH ×4 (08:08→22:00)
[2021-01-03] MEDS: *HR* Amiodarone 200 MG TABLET PO SCH (08:14)
[2021-01-03] MEDS: Furosemide 40 MG/4 ML VIAL IVP SCH ×2 (08:15→21:58)
[2021-01-03] MEDS: carvediloL 6.25 MG TABLET PO SCH ×2 (08:15→21:59)
[2021-01-03] MEDS: MethylPREDNISolone 40 MG/ML VIAL IVP SCH (08:15)
[2021-01-03] MEDS: Apixaban 2.5 MG TABLET PO SCH ×2 (08:15→22:10)
[2021-01-03 08:17] LABS: ANA IgG by ELISA NONE DETECTED (None Detected)
[2021-01-03] MEDS: Budesonide/Formoterol 80/4.5 1 PUFF INH IH SCH ×2 (10:02→22:04)
[2021-01-03 10:56] LABS: Albumin 2.9 g/dL (3.5-5.7); Albumin/Globulin Ratio 0.9 (1.1-2.2); Bilirubin,Direct 0.1 mg/dL (0.0-0.2); Bilirubin,Indirect 0.6 mg/dL (0.0-1.0); Bilirubin,Total 0.7 mg/dL (0.3-1.0); Globulin 3.1 g/dL (2.4-3.5)
[2021-01-03] MEDS: Azithromycin 500 MG in 0.9 % Sodium Chloride 250 ML IVPB SCH (12:05)
[2021-01-03] MEDS: Iron Sucrose Complex 250 MG in 0.9 % Sodium Chloride 250 ML IVPB SCH (17:55)
[2021-01-03] MEDS: Insulin DETEMIR 100 UNIT/ML X5UNITS SUBQ SCH (21:59)
[2021-01-04] MEDS: Ipratropium/Albuterol Neb 3 ML IH SCH ×4 (03:55→22:46)
[2021-01-04] MEDS: Insulin LISPRO 300 UNITS/3 ML VIAL SUBQ SCH ×4 (08:29→21:32)
[2021-01-04] MEDS: Furosemide 40 MG/4 ML VIAL IVP SCH (08:36)
[2021-01-04] MEDS: Apixaban 2.5 MG TABLET PO SCH ×2 (08:36→21:32)
[2021-01-04] MEDS: carvediloL 6.25 MG TABLET PO SCH ×2 (08:36→21:32)
[2021-01-04] MEDS: *HR* Amiodarone 200 MG TABLET PO SCH (08:36)
[2021-01-04] MEDS: MethylPREDNISolone 40 MG/ML VIAL IVP SCH (08:37)
[2021-01-04 09:56] LABS: Hemoglobin 7.6 g/dL (11.5-15.4); Mean Corpuscular HGB Conc 29.2 g/dL (31.6-35.5); Mean Corpuscular Hemoglobin 27.9 pg (28.0-33.3); Mean Corpuscular Volume 95.6 fL (83.0-100.0); Red Blood Count 2.72 M/mcL (3.82-4.97)
[2021-01-04 09:58] LABS: Immature Platelets 4.2 % (1.1-6.1); Mean Platelet Volume 10.7 fL (9.4-12.4)
[2021-01-04 10:19] LABS: Calcium 8.6 mg/dL (8.6-10.3); Potassium 4.3 mEq/L (3.5-5.1)
[2021-01-04] MEDS ORDERED: 0.9 % Sodium Chloride 250 ML ONE (10:47)
[2021-01-04] MEDS: Budesonide/Formoterol 80/4.5 1 PUFF INH IH SCH ×2 (11:59→22:46)
[2021-01-04] MEDS: Azithromycin 500 MG in 0.9 % Sodium Chloride 250 ML IVPB SCH (14:45)
[2021-01-04] MEDS: Insulin DETEMIR 100 UNIT/ML X5UNITS SUBQ SCH (21:32)
[2021-01-04] MEDS ORDERED: polyethylene glycoL 3350 17 GM POWD.PACK PO PRN (22:37)
[2021-01-05] MEDS: Ipratropium/Albuterol Neb 3 ML IH SCH ×4 (04:23→22:02)
[2021-01-05 04:48] LABS: Hematocrit 29.5 % (35.3-44.9); Hemoglobin 8.8 g/dL (11.5-15.4); Mean Corpuscular HGB Conc 29.8 g/dL (31.6-35.5); Mean Corpuscular Hemoglobin 28.9 pg (28.0-33.3); Mean Corpuscular Volume 96.7 fL (83.0-100.0); Mean Platelet Volume 11.3 fL (9.4-12.4); Platelet Count 90 K/mcL (140-400); Red Blood Count 3.05 M/mcL (3.82-4.97); Red Cell Distribution Width 16.1 % (11.5-14.5); White Blood Count 5.5 K/mcL (4.3-11.1)
[2021-01-05 04:56] LABS: Calcium 8.4 mg/dL (8.6-10.3); Potassium 4.6 mEq/L (3.5-5.1)
[2021-01-05] MEDS: Insulin LISPRO 300 UNITS/3 ML VIAL SUBQ SCH ×4 (08:18→20:37)
[2021-01-05] MEDS: Apixaban 2.5 MG TABLET PO SCH ×2 (08:39→20:37)
[2021-01-05] MEDS: *HR* Amiodarone 200 MG TABLET PO SCH (08:39)
[2021-01-05] MEDS: MethylPREDNISolone 40 MG/ML VIAL IVP SCH (08:40)
[2021-01-05] MEDS: carvediloL 6.25 MG TABLET PO SCH ×2 (08:40→20:37)
[2021-01-05] MEDS: Budesonide/Formoterol 80/4.5 1 PUFF INH IH SCH ×2 (10:53→22:01)
[2021-01-05] MEDS: Azithromycin 500 MG in 0.9 % Sodium Chloride 250 ML IVPB SCH (12:27)
[2021-01-05] MEDS: Azithromycin 250 MG TABLET PO SCH (12:37)
[2021-01-05] MEDS: Furosemide 40 MG TABLET PO SCH (12:37)
[2021-01-05] MEDS: Insulin DETEMIR 100 UNIT/ML X5UNITS SUBQ SCH (20:37)
[2021-01-06] MEDS: Ipratropium/Albuterol Neb 3 ML IH SCH ×4 (04:07→23:08)
[2021-01-06 05:14] LABS: Hemoglobin 8.1 g/dL (11.5-15.4); Mean Corpuscular Hemoglobin 28.2 pg (28.0-33.3); Red Blood Count 2.87 M/mcL (3.82-4.97); Red Cell Distribution Width 16.1 % (11.5-14.5)
[2021-01-06 05:16] LABS: Hematocrit 27.3 % (35.3-44.9); Immature Platelets 5.3 % (1.1-6.1); Mean Corpuscular HGB Conc 29.7 g/dL (31.6-35.5); Mean Corpuscular Volume 95.1 fL (83.0-100.0); Mean Platelet Volume 11.5 fL (9.4-12.4); White Blood Count 4.9 K/mcL (4.3-11.1)
[2021-01-06 05:21] LABS: Calcium 8.2 mg/dL (8.6-10.3)
[2021-01-06] MEDS: Insulin LISPRO 300 UNITS/3 ML VIAL SUBQ SCH ×4 (07:58→19:34)
[2021-01-06] MEDS: *HR* Amiodarone 200 MG TABLET PO SCH (08:02)
[2021-01-06] MEDS: carvediloL 6.25 MG TABLET PO SCH ×2 (08:02→19:33)
[2021-01-06] MEDS: Apixaban 2.5 MG TABLET PO SCH ×2 (08:02→19:33)
[2021-01-06] MEDS: Furosemide 40 MG TABLET PO SCH (08:02)
[2021-01-06] MEDS: Azithromycin 250 MG TABLET PO SCH (08:03)
[2021-01-06] MEDS: Cyanocobalamin (B-12) 1,000 MCG TABLET PO SCH (08:03)
[2021-01-06] MEDS: Budesonide/Formoterol 80/4.5 1 PUFF INH IH SCH ×2 (10:44→23:08)
[2021-01-06 14:31] LABS: INR 1.7
[2021-01-06 14:45] LABS: Albumin/Globulin Ratio 0.9 (1.1-2.2); Bilirubin,Direct 0.3 mg/dL (0.0-0.2); Bilirubin,Indirect 0.6 mg/dL (0.0-1.0); Bilirubin,Total 0.9 mg/dL (0.3-1.0); Globulin 3.2 g/dL (2.4-3.5); Total Protein 6.2 g/dL (6.4-8.9)
[2021-01-06] MEDS: Insulin DETEMIR 100 UNIT/ML X5UNITS SUBQ SCH (21:38)
[2021-01-07 00:58] LABS: Hematocrit 28.3 % (35.3-44.9); Hemoglobin 8.5 g/dL (11.5-15.4); Immature Platelets 3.5 % (1.1-6.1); Mean Corpuscular Hemoglobin 28.5 pg (28.0-33.3); Red Blood Count 2.98 M/mcL (3.82-4.97); Red Cell Distribution Width 16.2 % (11.5-14.5); White Blood Count 5.1 K/mcL (4.3-11.1)
[2021-01-07 01:50] LABS: Potassium 4.5 mEq/L (3.5-5.1)
[2021-01-07] MEDS: Ipratropium/Albuterol Neb 3 ML IH SCH ×4 (03:44→21:39)
[2021-01-07 07:56] LABS: Urine Collection Volume RANDOM mL
[2021-01-07] MEDS: carvediloL 6.25 MG TABLET PO SCH ×2 (07:58→21:18)
[2021-01-07] MEDS: Azithromycin 250 MG TABLET PO SCH (07:58)
[2021-01-07] MEDS: Furosemide 40 MG TABLET PO SCH (07:58)
[2021-01-07] MEDS: *HR* Amiodarone 200 MG TABLET PO SCH (07:58)
[2021-01-07] MEDS: Insulin LISPRO 300 UNITS/3 ML VIAL SUBQ SCH ×4 (07:58→21:15)
[2021-01-07] MEDS: Cyanocobalamin (B-12) 1,000 MCG TABLET PO SCH (07:58)
[2021-01-07] MEDS: Apixaban 2.5 MG TABLET PO SCH ×2 (07:58→21:17)
[2021-01-07 10:21] LABS: Adenovirus Not Detected (Not Detect); Bordetella Pertussis Not Detected (Not Detect); Chlamydophila pneumoniae Not Detected (Not Detect); Coronavirus 229E Not Detected (Not Detect); Coronavirus HKU1 Not Detected (Not Detect); Coronavirus NL63 Not Detected (Not Detect); Coronavirus OC43 Not Detected (Not Detect); Human Metapneumovirus Not Detected (Not Detect); Human Rhinovirus/Enterovirus Not Detected (Not Detect); Influenza A Subtype 2009 H1 Not Detected (Not Detect); Influenza B Not Detected (Not Detect); Mycoplasma pneumoniae Not Detected (Not Detect); Parainfluenza Virus 1 Not Detected (Not Detect); Parainfluenza Virus 2 Not Detected (Not Detect); Parainfluenza Virus 3 Not Detected (Not Detect); Parainfluenza Virus 4 Not Detected (Not Detect); Respiratory Syncytial Virus Not Detected (Not Detect); SARS-CoV-2 Not Detected (Not Detect)
[2021-01-07] MEDS: Budesonide/Formoterol 80/4.5 1 PUFF INH IH SCH ×2 (10:37→21:39)
[2021-01-07] MEDS ORDERED: Simethicone 40 MG/0.6 ML MLS IR ONE (12:52)
[2021-01-07] MEDS ORDERED: Lidocaine -MPF 2% 2 ML VIAL ONE (13:01)
[2021-01-07] MEDS: Insulin DETEMIR 100 UNIT/ML X5UNITS SUBQ SCH (21:32)
[2021-01-08 03:16] LABS: Hematocrit 26.7 % (35.3-44.9); Mean Corpuscular Hemoglobin 28.5 pg (28.0-33.3); Platelet Count 72 K/mcL (140-400); Red Blood Count 2.81 M/mcL (3.82-4.97); Red Cell Distribution Width 16.3 % (11.5-14.5); White Blood Count 3.8 K/mcL (4.3-11.1)
[2021-01-08] MEDS: Ipratropium/Albuterol Neb 3 ML IH SCH ×2 (03:34→10:15)
[2021-01-08] MEDS: *HR* Amiodarone 200 MG TABLET PO SCH (08:06)
[2021-01-08 08:07] VITALS: BP 142/63
[2021-01-08] MEDS: Azithromycin 250 MG TABLET PO SCH (08:07)
[2021-01-08] MEDS: Furosemide 40 MG TABLET PO SCH (08:07)
[2021-01-08] MEDS: carvediloL 6.25 MG TABLET PO SCH (08:07)
[2021-01-08] MEDS: Cyanocobalamin (B-12) 1,000 MCG TABLET PO SCH (08:07)
[2021-01-08] MEDS: Insulin LISPRO 300 UNITS/3 ML VIAL SUBQ SCH (08:32)
[2021-01-08] MEDS: Budesonide/Formoterol 80/4.5 1 PUFF INH IH SCH (10:16)
== END 2021-01-08 12:04 | disposition home health service (06) | DRG 811 ==
LOC: 3BNU 12:28 → EMEROOARM 12:28 → 3BNU 16:03 → SUATTDRO 01-01 16:40
PROVIDERS: ADMIT Internal Medicine; ATTEND Internal Medicine